=== PATIENT | female | born 1965 | race Hispanic/Latino ===

== ENCOUNTER 2023-11-19 11:26 | Emergency (ER) | payer BC ==
--- OUTSIDE RECORDS SUMMARY | 2023-11-19 11:29 | XMS REPORT | Continuity of Care Document ---
Author Name Unknown Address [address] [facility] [address] [place] [address] [facility] thconnect Address [address] [facility] [address] [place] [address] Care Team Providers Care Dipper And Baker Name Role Phone Farideh Mitchell Attending Clinician Gwendolyn Landon Attending Clinician U Gwendolyn Almonte Admitting Clinician UnavailFarideh Iyer Admitting Clinician Unavailable Payers Payer Name Policy Type Policy Number Effective Date Expirati on Date Source Encounters Start Date/Time End Date/Time Encounter Type Admission Type Attending Clinicians Care Facility Care Department Encounter ID Source 2023-11-13 10:00:00 Inpatient Farideh Davison RAD [id number] [facility] [place] [facility] 2023-03-14 15:00:00 2023-03-14 15:00:00 Outpatient Farideh Davison RAD [id number] [facility] [place] [facility] 2023-03-03 08:19:00 2023-03-03 08:19:00 Outpatient Farideh Davison MAMMO [id number] [facility] [place] [facility] 2022-03-02 14:30:00 2022-03-02 14:30:00 Outpatient Farideh Davison MAMMO [id number] [facility] [place] [facility] 2021-05-21 13:00:00 2021-05-21 13:00:00 Inpatient Gwendolyn Crawford RAD [id number] [facility] [place] [facility] 2021-03-01 12:54:00 2021-03-01 12:54:00 Outpatient Farideh Davison MAMMO [id number] [facility] [place] [facility] Results Test Description Test Time Test Comments Results Resul t Comments Source - US PELVIC COMPLETE 2023-03-14 [facility] 1965 Sex: F * Haskell: [facility] St: REG Name: TANA CASTILLO [facility] : 1965 Age/S: 57/F [address] Unit #: [id number] Loc: [place], [place] [address] Phys: Farideh Mitchell MD Acct: [id number] Dis Date: Status: REG CLI PHONE #: [phone] Exam Date: 03/14/2023 1609 FAX #: [phone] Reason: POST MENOPAUSAL BLEEDING EXAMS: CPT CODE: [id number] US PELVIC COMPLETE 71368 Pelvic ultrasound with limited Doppler. History: Postmenopausal bleeding. Technique: Transpelvic and endovaginal ultrasound of pelvic region was performed with justice scale, color Doppler and spectral interrogation. LOCATION: H19 Findings: There are no prior studies available for comparison. The uterus measures 7.6 x 3.5 x 4.1 cm. The 1.8 x 1.5 x 1.7 cm and 1.0 x 1.1 x 1.2 cm hyperechoic uterine lesions are demonstrated within the ventral uterine body protruding into the endometrial cavity. The endometrial stripe measures 0.46 cm in width. The right ovary measures 3.4 x 1.5 x 2.2 cm, and demonstrates arterial flow. The left ovary measures 1.7 x 0.7 x 1.3 cm, and demonstrates arterial flow. There is no free fluid in the pelvis. Impression: Borderline thickened endometrial stripe. Two discrete hyperechoic uterine lesions with endometrial cavity protrusion may reflect uterine fibroids and/or endometrial neoplasia. Hysteroscopy is recommended for further assessment in this patient with postmenopausal bleeding. at 1700 Reported and signed by: DWIGHT VAZQUEZ MD Facility [facility] Accreditation for Ultrasound - September 2011 CC: Gwendolyn Navarro MD; Farideh Mitchell MD Technologist: [id number]; ELMA MEDLEY Transcribed Date/Time/By: 03/14/2023 (170) : By: [email or web address] Orig Print D/T: S: 03/14/2023 (225) PAGE 1 Signed Report - US TRANSVAGINAL NON OB 2023-03-14 17:00:00 [facility] Bas[facility] : 1965 Sex: F * Haskell: [facility] St: REG Name: TANA CASTILLO [facility] : 1965 Age/S: 57/F [address] [facility] Unit #: [id number] Loc: [place], [place] [address] Phys: Farideh Mitchell MD Acct: [id number] Dis Date: Status: REG CLI PHONE #: [phone] Exam Date: 03/14/2023 1609 FAX #: [phone] Reason: POST MENOPAUSAL BLEEDING EXAMS: CPT CODE: [id number] [place] [address] Pelvic ultrasound with limited Doppler. History: Postmenopausal bleeding. Technique: Transpelvic and endovaginal ultrasound of pelvic region was performed with justice scale, color Doppler and spectral interrogation. LOCATION: H19 Findings: There are no prior studies available for comparison. The uterus measures 7.6 x 3.5 x 4.1 cm. The 1.8 x 1.5 x 1.7 cm and 1.0 x 1.1 x 1.2 cm hyperechoic uterine lesions are demonstrated within the ventral uterine body protruding into the endometrial cavity. The endometrial stripe measures 0.46 cm in width. The right ovary measures 3.4 x 1.5 x 2.2 cm, and demonstrates arterial flow. The left ovary measures 1.7 x 0.7 x 1.3 cm, and demonstrates arterial flow. There is no free fluid in the pelvis. Impression: Borderline thickened endometrial stripe. Two discrete hyperechoic uterine lesions with endometrial cavity protrusion may reflect uterine fibroids and/or endometrial neoplasia. Hysteroscopy is recommended for further assessment in this patient with postmenopausal bleeding. at 1700 Reported and signed by: DWIGHT VAZQUEZ MD Facility [facility] Accreditation for Ultrasound - September 2011 CC: Gwendolyn Navarro MD; Farideh Mitchell MD Technologist: [id number]; ELMA MEDLEY Transcribed Date/Time/By: 03/14/2023 (594) : By: [email or web address] Orig Print D/T: S: 03/14/2023 (769) PAGE 1 Signed Report - MAMMO CHANTELLE SCR CAD BI 2023-03-06 09:53:00 [facility] 1965 Sex: F * FAX: Gwendolyn Espinosa [phone] Camps: [facility]: MARCIA FAX: Farideh Mitchell MD [phone] Name: TANA CASTILLO [facility] : 1965 Age/S: 57/F [address] [facility] Unit #: [id number] Loc: [place], [place] [address] Phys: Farideh Mitchell MD Acct: [id number] Dis Date: Status: MARCIA CLI PHONE #: [phone] Exam Date: 03/03/2023829 FAX #: [phone] Reason: SCREENING EXAMS: CPT CODE: [id number] [place] [address] EXAM: - MAMMO CHANTELLE SCR CAD BI REASON FOR EXAM: 57 years female presenting for annual screening mammography. No personal or first-degree family history of breast cancer. COMPARISON: 03/02/2022, 03/01/2021 Findings: Synthetic 2D CC and MLO projections were obtained of both breasts using digital technique.3-D CC and MLO tomosynthesis projections were also obtained. Enhanced V preview imaging was utilized in the interpretation of this exam. The breast parenchyma contains scattered fibroglandular densities. No suspicious masses, calcifications, architectural distortion or asymmetries are noted. Impression: 1. No mammographic evidence of malignancy. Annual screening mammography is recommended. BI-RADS 1-NEGATIVE F OR INTERNAL CODING PURPOSES ONLY RESULT CODE: 1 FOLLOW UP: N Location code:V20 at 0953 Reported and signed by: NIKOLAS FERNÁNDEZ MD PAGE 1 Signed Report (CONTINUED) FAX: Gwendolyn Espinosa [phone] Camps: [facility] St: DEP FAX: Farideh Mitchell MD [phone] Name: TANA CASTILLO Basilio [facility] : 1965 Age/S: 57/F [address] [facility] Unit #: [id number] Loc: [place], [place] [address] Phys: Farideh Mitchell MD Acct: [id number] Dis Date: Status: DEP CLI PHONE #: [phone] Exam Date: 03/03/2023829 FAX #: [phone] Reason: SCREENING EXAMS: CPT CODE: [id number] [place] [address] (Continued) CC: Gwendolyn Navarro MD; Farideh Mitchell MD Technologist: BREN MOLINA RT(R)(M)(ARRT) Transcribed Date/Time/By: 03/06/2023 (0953) :[email or web address] Orig Print D/T: S: 03/06/2023 (0956) PAGE 2 Signed Report - MAMMO CHANTELLE SCR CAD BI 2022-03-02 16:24:00 [facility] 1965 Sex: F * FAX: Farideh Mitchell MD [phone] Camps: [facility] St: REG -- Name: TANA CASTILLO [facility] : 1965 Age/S: 56/F [address] [facility] Unit #: [id number] Loc: [place], [place] [address] Phys: Farideh Mitchell MD Acct: [id number] Dis Date: Status: REG CLI PHONE #: [phone] Exam Date: 03/02/2022 150 FAX #: [phone] Reason: SCREENING EXAMS: CPT CODE: [id number] [place] [address] EXAM: - MAMMO CHANTELLE SCR CAD BI REASON FOR EXAM: 56 years female presenting for annual screening mammography. No personal or first-degree family history of breast cancer. COMPARISON: 03/01/2021 Findings: Synthetic 2D CC and MLO projections were obtained of both breasts using digital technique.3-D CC and MLO tomosynthesis projections were also obtained. Enhanced V preview imaging was utilized in the interpretation of this exam The bilateral breast parenchyma contains scattered fibroglandular densities. No suspicious masses, calcifications, architectural distortion or asymmetries are noted. Impression: 1. No mammographic evidence of malignancy. Annual screening mammography is recommended. BIRADS 1-NEGATIVE F OR INTERNAL CODING PURPOSES ONLY RESULT CODE: 1 FOLLOW UP: N Location code:V20 at 8001 Reported and signed by: NIKOLAS FERNÁNDEZ MD PAGE 1 Signed Report (CONTINUED) FAX: Farideh Mitchell MD [phone] Camps: [facility] St: REG -- Name: TANA CASTILLO [facility] : 1965 Age/S: 56/F [address] [facility] Unit #: [id number] Loc: [place], [place] [address] Phys: Farideh Mitchell MD Acct: [id number] Dis Date: Status: REG CLI PHONE #: [phone] Exam Date: 03/02/2022 1507 FAX #: [phone] Reason: SCREENING EXAMS: CPT CODE: [id number] [place] [address] (Continued) CC: Farideh Mitchell MD Technologist: BREN MOLINA RT(R)(M)(ARRT) Transcribed Date/Time/By: 03/02/2022 (3422) :[email or web address] Orig Print D/T: S: 03/02/2022 (1467) PAGE 2 Signed Report - MAMMO CHANTELLE SCR CAD BI 2021-03-04 13:22:00 [facility] 1965 Sex: F * FAX: Farideh Mitchell MD [phone] Camps: [facility] St: DEP -- Name: TANA CASTILLO [facility] : 1965 Age/S: 55/F [address] [facility] Unit #: [id number] Loc: [place], [place] [address] Phys: Farideh Mitchell MD Acct: [id number] Dis Date: Status: DEP CLI PHONE #: [phone] Exam Date: 03/01/2021 1316 FAX #: [phone] Reason: SCREENING EXAMS: CPT CODE: [id number] [place] [address] BILATERAL DIGITAL SCREENING MAMMOGRAPHY HISTORY: SCREENING. COMPARISON: 08/09/2011. TECHNIQUE: digital 2D and 3-D tomosynthesis projections were obtained. Postprocessing computer aided detection was utilized (enhanced V preview). FINDINGS : Breast density : moderately dense heterogeneous fibroglandular tissue, which may lower the sensitivity of mammography. Bilaterally, there is no irregular mass, clustered microcalcifications, nor other secondary signs of malignancy. Small intramammary lymph nodes. IMPRESSION: No evidence of malignancy. ACR - BI-RADS CATEGORY 2 - Benign Findings. RECOMMENDATION: yearly screening mammography. [facility] Accreditation FDA Certified Board Certified Radiologists (ARRT) Registered Mammography Technologists NOTE: The patient will receive a written notice about the results of this study and will also receive in writing a separate letter reminding the patient when the next mammography should be scheduled. 1. A negative x-ray report should not delay biopsy if a dominant or clinically suspicious mass is present. 4 to 8% of cancers are not identified by x-ray. 2. A negative report may reinforce clinical impression. 3. Adenosis and dense breast may obscure an underlying neoplasm. PAGE 1 Signed Report (CONTINUED) FAX: Farideh Mitchell MD [phone] Camps: [facility] St: DEP -- Name: TANA CASTILLO Basilio [facility] : 1965 Age/S: 55/F [address] Unit #: [id number] [place]: [place] [address] Phys: Farideh Mitchell MD Acct: [id number] Dis Date: Status: DEP CLI PHONE #: [phone] Exam Date: 03/01/2021 1316 FAX #: [phone] Reason: SCREENING EXAMS: CPT CODE: [id number] [place] [address] (Continued) 4. False positive results average 6 to 10%. F OR INTERNAL CODING PURPOSES ONLY RESULT CODE: 2 FOLLOW UP: N at 1322 Reported and signed by: Vinay Ricardo MD CC: Farideh Mitchell MD Technologist: BREN MOLINA RT(R)(M)(ARRT) Transcribed Date/Time/By: 03/04/2021 (1322) :[email or web address] Orig Print D/T: S: 03/04/2021 (1326) PAGE 2 Signed Report
[2023-11-19] MEDS ORDERED: LIDOCAINE 1% 20 ML MDV ONE (11:44)
[2023-11-19] MEDS ORDERED: CEPHALEXIN 250 MG CAP ONE (11:45)
[2023-11-19] MEDS ORDERED: IBUPROFEN 200 MG TAB PO ONE (11:45)
[2023-11-19] MEDS ORDERED: HYDROCODONE/APAP 7.5/325 MG TAB ONE (11:46)
--- NOTE | 2023-11-19 12:35 | RAD REPORT ---
EXAM DESCRIPTION: RAD - Hip Right 2 View - 11/19/2023 12:24 pm CLINICAL HISTORY: PAIN COMPARISON: Elbow Right 3 View dated 11/19/2023 FINDINGS: No acute fracture. No malalignment. Mild right acetabular degenerative changes. IMPRESSION: No acute osseous abnormality involving the right hip.
--- NOTE | 2023-11-19 12:35 | RAD REPORT ---
EXAM DESCRIPTION: RAD - Elbow Right 3 View - 11/19/2023 12:24 pm CLINICAL HISTORY: PAIN COMPARISON: No comparisons FINDINGS/IMPRESSION: No acute fracture. No malalignment. No significant focal degenerative changes. Soft tissue prominence at the olecranon. This could be fluid or hematoma within the bursa.
[2023-11-19] MEDS ORDERED: MUPIROCIN 2% OINT 22GM TUBE TOP ONE (12:55)
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
[2023-11-19 16:37] VITALS: BP 150/89; TEMP 98.3; O2SAT 100
== END 2023-11-19 13:29 | disposition home or self-care (01) ==
LOC: ER 11:26
PROC: 0HQDXZZ Repair Right Lower Arm Skin, External Approach (ICD-10-PCS; principal; 2023-11-19)
DX: S51.811A Laceration without foreign body of right forearm, initial encounter (principal); S70.01XA Contusion of right hip, initial encounter; W10.2XXA Fall (on)(from) incline, initial encounter
CPT/HCPCS: 73502; 73080; 99284; 12002; J2001